=== PATIENT | male | born 1950 | race Caucasian/White ===

== ENCOUNTER 2018-08-24 13:06 | Outpatient (CLI) | payer MEDICARE, BC ==
[2018-08-24 14:40] LABS: #Eosinphils 0.2 thou/uL (0.0-0.7); #Monocytes 0.9 thou/uL (0.11-0.59); #Neutrophils 4.6 thou/uL (1.40-6.50); %Basophils 0.5 % (0.0-1.0); %Eosinophils 2.1 % (0.0-10.0); %Lymphocytes 34.3 % (21.0-51.0); %Neutrophils 53.1 % (42.0-75.0); Hemoglobin 12.9 g/dL (14.0-18.0); Mean Corpuscular HGB CONC 34.4 g/dL (32.0-36.0); Mean Corpuscular Hemoglobin 31.4 pg (27.0-31.0); Mean Corpuscular Volume 91.2 fL (78.0-98.0); Mean Platelet Volume 7.5 fL (7.4-10.4); Platelet Count 271 thou/uL (130-400); RBC Distribution Width 11.5 % (11.5-14.5); White Blood Cell (WBC) Count 8.8 thou/uL (4.8-10.8)
[2018-08-24 15:01] LABS: Anion Gap 14 mmol/L (10-20); BUN (Urea Nitrogen) 14 mg/dL (8.4-25.7); Calc. Creatinine Clearance 0 mL/min (70-130); Calcium 9.3 mg/dL (7.8-10.44); Carbon Dioxide 21 mmol/L (23-31); Chloride 106 mmol/L (98-107); Estimated GFR-MDRD Greater than 90; Glucose 111 mg/dL (80-115); Sodium 137 mmol/L (136-145)
== END 2018-08-24 13:07 | disposition home or self-care (01) ==
LOC: LABBT 13:06
PROVIDERS: ATTEND Orthopaedic Surgery
DX: Z01.818 Encounter for other preprocedural examination (principal); M75.101 Unspecified rotator cuff tear or rupture of right shoulder, not specified as traumatic
CPT/HCPCS: 80048; 85025; 93005; 93010

== ENCOUNTER 2018-08-26 06:58 | Day surgery (SDC) | payer MEDICARE, BC ==
[2018-08-24 13:33] VITALS: BMI 27.8
[2018-08-26] MEDS ORDERED: CEFAZOLIN/Water 2 GM/20 ML SYRINGE ONE (07:20)
[2018-08-26] MEDS ORDERED: Midazolam HCl 2 mg/2 ml Vial ONE (08:51)
[2018-08-26] MEDS ORDERED: Fentanyl 100 MCG/2 ML VIAL ONE ×2 (08:52→10:15)
[2018-08-26] MEDS ORDERED: Vancomycin HCl 1.5 GM in Sodium Chloride 0.9% 250 ML 300 ML IVPB SCH (11:15)
[2018-08-26] MEDS ORDERED: Promethazine HCl 25 MG/ML VIAL IM PRN (12:35)
[2018-08-26] MEDS ORDERED: Ondansetron HCl/PF 4 MG/2 ML Vial IVP PRN (12:35)
[2018-08-26] MEDS ORDERED: Ketorolac Tromethamine 30 MG/ML VIAL IVP PRN (12:35)
[2018-08-26] MEDS ORDERED: Ropivacaine 0.2% 550 ML 550 ML NERVE BLCK SCH (12:35)
[2018-08-26] MEDS ORDERED: Zolpidem Tartrate 5 MG TAB PO PRN (12:35)
[2018-08-26] MEDS ORDERED: traMADol HCl 50 MG TAB PO PRN ×2 (12:35)
[2018-08-26] MEDS ORDERED: Fentanyl 100 MCG/2 ML VIAL IV PRN (12:38)
[2018-08-26] MEDS ORDERED: HYDROcodone/Acetaminophen 7.5/325 mg Tablet PO PRN ×2 (12:41)
[2018-08-26] MEDS ORDERED: Ropivacaine 0.5% HCl/PF (150 MG/30 ML VIAL) ONE (12:56)
[2018-08-26] MEDS ORDERED: ePHEDrine/0.9% NaCl/PF SYRINGE 50 mg/10 ml ONE (13:04)
[2018-08-26] MEDS ORDERED: Metoclopramide HCl 10 MG/2 ML VIAL ONE (13:04)
[2018-08-26] MEDS ORDERED: PHENYLEPHRINE-NS 100 MCG/ML 10 ML SYRINGE ONE (13:04)
[2018-08-26] MEDS ORDERED: Ondansetron HCl/PF 4 MG/2 ML Vial ONE (13:04)
[2018-08-26] MEDS ORDERED: Ropivacaine 0.2% HCl/PF (40 MG/20 ML VIAL) ONE (13:04)
[2018-08-26] MEDS ORDERED: PROPOFOL 200 MG/20 ML VIAL ONE (13:04)
[2018-08-26] MEDS ORDERED: Lidocaine 1% PF 5 ML VIAL ONE (13:04)
--- NOTE | 2018-08-26 23:14 | OP ---
DATE OF OPERATION: 08/26/2018 PREOPERATIVE DIAGNOSES: Right shoulder impingement with massive rotator cuff tear, acromioclavicular joint arthritis, and biceps tendon tearing and instability. POSTOPERATIVE DIAGNOSES: Right shoulder impingement with massive rotator cuff tear, acromioclavicula r joint arthritis, and biceps tendon tearing and instability. PROCEDURES PERFORMED: 1. Right shoulder open subacromial decompression. 2. Open rotator cuff repair. 3. Open distal clavicle excision. 4. Open biceps tenodesis. SURGEON: Theo Fried M.D. WORKING MANAGER: Jono Alvarado PA-C. ESTIMATED BLOOD LOSS: Approximately 200 mL COMPLICATIONS: None. ANESTHESIA: He had general anesthetic. He had a preoperative block. IMPLANTS: Two triple-loaded titanium anchors as well as two 4.75 mm BioComposite SwiveLocks. All of these were [employer] devices. INDICATIONS: A 68-year-old male who comes in complaining of pain and weakness trying to elevate the arm and use the arm for daily activities. He has failed nonoperative treatment, at this time wished for surgery. OPERATIVE PROCEDURE: After all appropriate consent forms were explained and signed, he was taken to the operating room and at this time was given general anesthetic. Once the level of anesthesia was a ppropriate, he was placed in modified beach chair position with all bony prominences well-padded. Th e right shoulder and upper extremity were prepped and draped in standard surgical fashion. Incision was made with a 10 blade down through skin only. Bovie was used to coagulate any brisk venous bleedi ng. Full thickness flap was taken to expose the anterior acromion and taken proximally to the AC caleb nt and used to also expose the end of the clavicle. At this time, two Hohmann retractors were placed anterior and posterior and a saw was used to remove approximately 1 cm of the distal clavicle. Edge s were smoothed with a rasp and a small amount of bone wax was placed under the bleeding cancellous b one. We then used a retractor to protect the underlying cuff and again used the saw to perform an an terior inferior acromioplasty. Again, the rasp was used to smooth off any walk bone. At this time, bursa was removed and gained access to our underlying massive cuff tear. Posterior cuff was intact. There was a rolled-up band of what essentially was majority of the infraspinatus and all of the supr aspinatus, there was an interval piece of tissue which was the rotator cuff, which was still attached to the tuberosity, almost having the appearance of a small little suspension bridge. We looked into the joint, the articular surface of the humeral head and glenoid were visible and appeared to be in good condition. No loose bodies were noted. Biceps tendon was found to be very large and flattened and hard and also was found to be out of the bicipital groove. At this time, scissors were used to r emove the biceps off of the superior labrum. Once this was done, we then placed some traction suture s in our cuff and mobilized the rotator cuff superiorly and inferiorly. At this time, we then took a rongeur and curette and found our reattachment site on the tuberosity, cleared this off of any soft tissue as well as removing approximately 8-10 mm of bone medially, so that we would not put too much tension on our cuff repair. Once this was done, we then took two-triple loaded titanium anchors plac ed them right on the edge of the bone and used these for later repair of her rotator cuff. Prior to doing this, a cottony Dacron suture was used to sew together our multiple release of rotator cuff to form one large leaflet. At this time, we then used the sutures from our anchors and we placed these in mattress fashion for rotator cuff repair. These were then tied down and then ran these through a small portion of intact rotator cuff that was still attached to the greater tuberosity and then took the sutures further down laterally down the humerus to perform our double row repair. Once this was done, we turned our attention to the biceps tendon. Interarticular portion was removed and secondary to having placed four anchors into the bone decided it would be best to just go ahead and do a soft tissue tenodesis and thus multiple #1 Ethibond sutures were used to sew our biceps tendon to the loca l soft tissue in the bicipital groove. At this time, the arm was taken through full range of motion. We had 35 degrees of external rotation and 150 degrees of forward flexion. None of this putting te nsion on our rotator cuff repair. We then thoroughly irrigated and dried our wound. We used multipl e #1 Ethibond sutures to repair the deltoid tissue through and into the acromion through the bone. O nce this primary repair had been performed, a running #1 Vicryl suture was used to oversew this follo wed by 2-0 Vicryl and surgical shavon on the skin. Bulky sterile dressing was applied. The patient was then placed into a sling. He was then awakened and taken to the recovery room in stable conditi on. All counts were correct at the end the case and he did receive preoperative IV antibiotics.
== END 2018-08-26 14:55 | disposition home or self-care (01) ==
LOC: SDC 06:58
PROVIDERS: ATTEND Orthopaedic Surgery
PROC: 0LS10ZZ Reposition Right Shoulder Tendon, Open Approach (ICD-10-PCS; principal; 2018-08-26)
PROC: 0PB90ZZ Excision of Right Clavicle, Open Approach (ICD-10-PCS; 2018-08-26)
PROC: 0LQ10ZZ Repair Right Shoulder Tendon, Open Approach (ICD-10-PCS; 2018-08-26)
PROC: 0RHJ04Z Insertion of Internal Fixation Device into Right Shoulder Joint, Open Approach (ICD-10-PCS; 2018-08-26)
DX: S46.111A Strain of muscle, fascia and tendon of long head of biceps, right arm, initial encounter (principal); M75.101 Unspecified rotator cuff tear or rupture of right shoulder, not specified as traumatic; M75.41 Impingement syndrome of right shoulder; M19.011 Primary osteoarthritis, right shoulder; E11.9 Type 2 diabetes mellitus without complications; E78.5 Hyperlipidemia, unspecified; I10 Essential (primary) hypertension; M10.9 Gout, unspecified; Z79.84 Long term (current) use of oral hypoglycemic drugs; Z79.899 Other long term (current) drug therapy; Z98.890 Other specified postprocedural states
CPT/HCPCS: 23120; 23130; 23412; 23430; A4306; C1713 ×2; J2001; J2250; J2405; J2704; J2765; J2795; J3010; J3370; J7050

== ENCOUNTER 2018-12-02 06:08 | Outpatient (CLI) | payer MEDICARE, BC ==
[2018-12-02 12:21] LABS: #Basophils 0.1 thou/uL (0.0-0.2); #Eosinphils 0.4 thou/uL (0.0-0.7); #Lymphocytes 2.7 thou/uL (1.20-3.40); #Monocytes 0.7 thou/uL (0.11-0.59); #Neutrophils 5.9 thou/uL (1.40-6.50); %Basophils 0.8 % (0.0-1.0); %Lymphocytes 27.2 % (21.0-51.0); %Monocytes 7.3 % (0.0-10.0); %Neutrophils 60.7 % (42.0-75.0); Hemoglobin 11.8 g/dL (14.0-18.0); Mean Corpuscular HGB CONC 32.5 g/dL (32.0-36.0); Mean Corpuscular Volume 89.3 fL (78.0-98.0); Mean Platelet Volume 7.3 fL (7.4-10.4); Platelet Count 289 thou/uL (130-400); RBC Distribution Width 11.8 % (11.5-14.5); Red Blood Cell (RBC) Count 4.08 mill/uL (4.70-6.10); White Blood Cell (WBC) Count 9.8 thou/uL (4.8-10.8)
[2018-12-02 12:35] LABS: Hemoglobin A1c 6.3 % (4.0-6.0)
[2018-12-02 12:37] LABS: Anion Gap 13 mmol/L (10-20); BUN (Urea Nitrogen) 13 mg/dL (8.4-25.7); Calc. Creatinine Clearance 0 mL/min (70-130); Calcium 9.7 mg/dL (7.8-10.44); Carbon Dioxide 25 mmol/L (23-31); Chloride 106 mmol/L (98-107); Estimated GFR-MDRD Greater than 90; Glucose 147 mg/dL (80-115); Sodium 140 mmol/L (136-145)
== END 2018-12-02 06:09 | disposition home or self-care (01) ==
LOC: LABBT 06:08
PROVIDERS: ATTEND Specialist
DX: Z01.818 Encounter for other preprocedural examination (principal); K63.5 Polyp of colon
CPT/HCPCS: 80048; 82378; 83036; 85025

== ENCOUNTER 2018-12-02 10:30 | Inpatient (IN) | payer MEDICARE, BC ==
[2018-12-02 10:55] VITALS: BMI 26.4
[2018-12-06] MEDS ORDERED: Fentanyl 100 MCG/2 ML VIAL ONE ×2 (06:21→07:17)
[2018-12-06] MEDS ORDERED: Midazolam HCl 2 mg/2 ml Vial ONE (06:21)
[2018-12-06] MEDS ORDERED: Ketorolac Tromethamine 30 MG/ML VIAL ONE ×2 (06:30→16:19)
[2018-12-06] MEDS ORDERED: Lidocaine 1% w/Epinephrine 1:100K 20 ML VIAL ONE ×2 (06:41→10:08)
[2018-12-06] MEDS ORDERED: cefOXitin Sodium/Dextrose,Iso 2 GM in Premix Bag 1 BAG IVPB SCH (06:45)
[2018-12-06] MEDS ORDERED: Albumin 25% 100 ML ONE (07:18)
[2018-12-06] MEDS ORDERED: Indocyanine Green 25 MG/10 ML VIAL ONE (08:44)
[2018-12-06] MEDS ORDERED: ceFOXitin 1 GM VIAL ONE (08:44)
[2018-12-06] MEDS ORDERED: Promethazine HCl 25 MG/ML VIAL IM PRN ×3 (10:48→14:13)
[2018-12-06] MEDS ORDERED: HYDROmorphone 2 MG/ML VIAL SLOW IVP PRN (10:48)
[2018-12-06] MEDS ORDERED: Promethazine HCl 25 MG/ML VIAL SLOW IVP PRN (10:48)
[2018-12-06] MEDS ORDERED: Ondansetron HCl/PF 4 MG/2 ML Vial IVP PRN (10:48)
[2018-12-06] MEDS ORDERED: PACU-Morphine 4MG/ML VIAL SLOW IVP PRN (10:48)
[2018-12-06] MEDS ORDERED: D5 1/2 NS w/20 mEq KCL 1,000 ML IV SCH (14:13)
[2018-12-06] MEDS ORDERED: hydrALAZINE 20 MG/ML VIAL SLOW IVP PRN ×2 (14:13)
[2018-12-06] MEDS ORDERED: Morphine 4 MG/ML VIAL SLOW IVP PRN ×2 (14:13)
[2018-12-06] MEDS ORDERED: Insulin Regular 300 UNITS/3 ML VIAL SC PRN (14:13)
[2018-12-06] MEDS ORDERED: Ondansetron PF 4 MG/2 ML Vial IVP PRN ×2 (14:13)
[2018-12-06] MEDS ORDERED: Acetaminophen 1,000 MG in Premix Bag 1 BAG IVPB SCH (14:13)
[2018-12-06] MEDS ORDERED: Bupivacaine HCl 0.5%/Epinephrine 1:200,000/PF 30 ml Vial ONE (15:31)
[2018-12-06] MEDS ORDERED: Ondansetron PF 4 MG/2 ML Vial ONE (16:19)
[2018-12-06] MEDS ORDERED: PROPOFOL 200 MG/20 ML VIAL ONE (16:19)
[2018-12-06] MEDS ORDERED: Dexamethasone 20 MG/5 ML VIAL ONE (16:19)
[2018-12-06] MEDS ORDERED: Lidocaine 1% PF 5 ML VIAL ONE (16:19)
[2018-12-06] MEDS ORDERED: ePHEDrine/0.9% NaCl/PF SYRINGE 50 mg/10 ml ONE (16:19)
[2018-12-06] MEDS ORDERED: Rocuronium Bromide 10 MG/ML (10ML VIAL) ONE (16:19)
[2018-12-06] MEDS ORDERED: PHENYLEPHRINE-NS 100 MCG/ML 10 ML SYRINGE ONE (16:19)
[2018-12-06] MEDS: Ketorolac Tromethamine 30 MG/ML VIAL IVP SCH (18:32)
[2018-12-06] MEDS: Acetaminophen 1,000 MG in Premix Bag 1 BAG IVPB SCH (18:33)
[2018-12-06] MEDS: Enoxaparin Sodium 40 MG/0.4 ML SYRINGE SC SCH (20:35)
[2018-12-06] MEDS: Famotidine 20 MG TAB PO SCH (20:36)
[2018-12-06] MEDS: Lactated Ringer's 1,000 ML IV SCH (20:48)
[2018-12-06] MEDS ORDERED: Famotidine 20 MG TAB PO SCH (21:00)
[2018-12-06] MEDS ORDERED: Famotidine/PF 20 mg/2ml Vial SLOW IVP SCH ×2 (21:00)
[2018-12-07] MEDS: Acetaminophen 1,000 MG in Premix Bag 1 BAG IVPB SCH ×3 (00:10→13:34)
[2018-12-07] MEDS: Ketorolac Tromethamine 30 MG/ML VIAL IVP SCH ×4 (00:11→18:38)
[2018-12-07] MEDS: Lactated Ringer's 1,000 ML IV SCH ×3 (00:19→09:08)
[2018-12-07 06:58] LABS: #Basophils 0.1 thou/uL (0.0-0.2); #Eosinphils 0.1 thou/uL (0.0-0.7); #Lymphocytes 2.5 thou/uL (1.20-3.40); #Monocytes 0.7 thou/uL (0.11-0.59); #Neutrophils 5.2 thou/uL (1.40-6.50); %Basophils 0.6 % (0.0-1.0); %Eosinophils 0.9 % (0.0-10.0); %Monocytes 8.1 % (0.0-10.0); %Neutrophils 61.4 % (42.0-75.0); Hemoglobin 10.5 g/dL (14.0-18.0); Mean Corpuscular HGB CONC 33.3 g/dL (32.0-36.0); Mean Corpuscular Hemoglobin 30.5 pg (27.0-31.0); Mean Corpuscular Volume 91.7 fL (78.0-98.0); Mean Platelet Volume 7.1 fL (7.4-10.4); Platelet Count 217 thou/uL (130-400); RBC Distribution Width 11.9 % (11.5-14.5); Red Blood Cell (RBC) Count 3.45 mill/uL (4.70-6.10); White Blood Cell (WBC) Count 8.5 thou/uL (4.8-10.8)
[2018-12-07 07:28] LABS: Anion Gap 14 mmol/L (10-20); BUN (Urea Nitrogen) 10 mg/dL (8.4-25.7); Calc. Creatinine Clearance 108 mL/min (70-130); Calcium 8.9 mg/dL (7.8-10.44); Carbon Dioxide 23 mmol/L (23-31); Chloride 107 mmol/L (98-107); Estimated GFR-MDRD Greater than 90; Glucose 113 mg/dL (80-115); Potassium 3.6 mmol/L (3.5-5.1); Sodium 140 mmol/L (136-145)
[2018-12-07] MEDS: Allopurinol 100 MG TAB PO SCH (08:39)
[2018-12-07] MEDS: metFORMIN 500 MG TAB PO SCH ×2 (08:39→18:40)
[2018-12-07] MEDS: Alogliptin 25 MG TAB PO SCH (08:39)
[2018-12-07] MEDS: Famotidine 20 MG TAB PO SCH ×2 (08:40→20:31)
[2018-12-07] MEDS: Lisinopril 20 MG TAB PO SCH (08:40)
[2018-12-07] MEDS: Amlodipine 10 MG TAB PO SCH (08:40)
--- NOTE | 2018-12-07 15:40 | PRG ---
DATE OF SERVICE: 12/07/2018 SUBJECTIVE: Mr. Patino is doing very well, postoperative day #1, from a robotic right hemicolectomy for a right colon polyp. He has no complaints. He notes minimal abdominal discomfort. He has tolerated clear liquids yesterday, and he has ambulated well. His Gonzalez catheter was removed this morning, but he has not yet voided. OBJECTIVE: VITAL SIGNS: On examination, he is afebrile. His vital signs are entirely normal. He does have mild hypertension. His urine output overnight was excellent at 1300 mL. LUNGS: Clear to auscultation. CARDIAC: Regular rate and rhythm without murmur. ABDOMEN: Soft, nontender, and nondistended. Incisions are healing nicely. Bowel sounds are present and normoactive. LABORATORY STUDIES: Revealed that his hemoglobin is stable at 10.5. His white blood cell count is 8.5. His basic metabolic panel is entirely normal. His glucose levels yesterday ranged from 120 to 190. This morning his sugar level was 113. ASSESSMENT: He is doing very well postoperative day #1 following robotic right hemicolectomy. He will continue on clear liquids today and advance to full liquids in the morning. If he progresses as anticipated, I would imagine he will be discharged tomorrow. Job ID: [id number]
[2018-12-07] MEDS ORDERED: HYDROcodone/Acetaminophen 7.5/325 mg Tablet PO PRN ×2 (16:00)
--- NOTE | 2018-12-07 20:17 | OP ---
DATE OF PROCEDURE: 12/06/2018 PREOPERATIVE DIAGNOSIS: Colonoscopically unresectable right colon polyp. POSTOPERATIVE DIAGNOSIS: Colonoscopically unresectable right colon polyp. OPERATION PERFORMED: Robotic right hemicolectomy. ANESTHESIA: General endotracheal. INDICATIONS: The patient is a 68-year-old white male. He recently had a colonoscopy revealing a sessile polyp within the right colon that was colonoscopically unresectable. This was a serrated adenoma with high-grade dysplasia. The lesion was tattooed per Dr. Escudero. Right hemicolectomy was recommended. DESCRIPTION OF OPERATION: Informed consent was obtained and patient was taken to the operating room, where general endotracheal anesthesia was obtained with the patient in supine position. The patient had undergone mechanical and antibiotic bowel prep at home. Abdomen was prepped with ChloraPrep, draped in sterile fashion. Local anesthetic was infiltrated using 1% lidocaine with epinephrine. The patient had a tap block placed with Marcaine by Anesthesia before coming to the operating room. A 8 mm left periumbilical incision was created and Veress needle was passed through this incision to the abdominal cavity. Pneumoperitoneum was established using carbon dioxide up to pressure of 15 mmHg. An 8 mm trocar port was passed through the same incision and laparoscopic camera was passed through this port. Under direct vision, 3 additional ports were placed including 12 mm left upper quadrant port, 8 mm left lower abdominal port, and 11 mm left flank port to be used as an assist port. The robot was then docked to the three robotic ports and to the camera, and the operation was continued from the robotic console. There were two areas of adhesions noted in the patient's abdomen. His terminal ileum was fairly densely adherent to the right lateral abdominal wall. These adhesions were all sharply lysed in order to fully mobilize the ileum. Additionally, there were adhesions between the proximal transverse colon and the right colon. These adhesions were also sharply divided in order to restore normal anatomy. Attention was then turned to the cecum. This was elevated in order to identify the ileocolic pedicle. The mesentery was incised inferior to the ileocolic vessels and a retroperitoneal dissection was carried laterally to the right lateral abdominal wall. This was then carried superiorly up to the level of the hepatic flexure. At this point, the ileocolic vessels were dissected circumferentially and divided with the vessel sealer. The duodenum had been identified during retroperitoneal dissection and swept posteriorly. Dissection was then carried superiorly through the mesentery to a preselected site of the proximal transverse colon. The right branch of the middle colic artery was identified and divided using the vessel sealer. The transverse colon was dissected circumferentially at this level and divided with a single fire of the robotic stapler. The omentum was divided at this level so as to take the omentum of the proximal transverse colon with the specimen. Vessel sealer was then used to dissect through the mesentery of the small bowel to the ileum several centimeters proximal to the cecum. The ileum at this level was also divided with the robotic stapler. I then laterally mobilized the colon away from the lateral abdominal wall, by incising the white line of Toldt. In so doing, I completed the mobilization of the colon. The terminal ileum and right colon were then passed up above the liver and operation was continued with the anastomosis. The ileum was laid adjacent to the proximal transverse colon. A single suture of 3-0 Vicryl was placed about 7 cm from the stapled end of the transverse colon and about a centimeter or two away from the stapled end of the ileum. An enterotomy was created in both the ileum and the transverse colon, and blue load of stapler was passed through these openings and fired in order to create an anastomosis between the small bowel and the transverse colon. The Vicryl suture was pulled through the anterior abdominal wall using a GraNee needle and used to elevate the opening in the bowel to facilitate the closure. The common enterotomy was closed with a running suture of 3-0 Stratafix in a to and fro fashion. The right abdomen was irrigated and all irrigant was aspirated. There have been no spillage of any bowel contents during the course of the surgery. The colon was grasped and moved down to the lower abdomen. The fascial defect at the two larger port sites were closed with 0 Vicryl sutures and GraNee needle. The lower abdominal incision was extended to a total length of about 4 cm. Dissection was carried into the abdominal cavity using muscle-splitting technique and the Tonny wound retractor was placed. The colon was then delivered through this and brought out externally. The lower abdominal wound was closed in layers using 3-0 Vicryl to close the peritoneum and #1 PDS to close the anterior fascia. The wound was extensively irrigated and the remainder of the wound was closed in layers with 3-0 and 4-0 Monocryl suture. The other wounds were likewise cleansed and closed with 4-0 Monocryl suture. Dermabond was placed externally to each of this 4 incisions. There were no complications. Blood loss was negligible. The patient tolerated the procedure well and was taken to the recovery room in stable condition. Job ID: [id number]
[2018-12-07] MEDS: Enoxaparin Sodium 40 MG/0.4 ML SYRINGE SC SCH (20:31)
[2018-12-07] MEDS ORDERED: Atorvastatin Calcium 20 MG TAB PO SCH (21:00)
[2018-12-08] MEDS: Lactated Ringer's 1,000 ML IV SCH (00:15)
[2018-12-08] MEDS: Ketorolac Tromethamine 30 MG/ML VIAL IVP SCH ×3 (00:15→11:14)
[2018-12-08] MEDS: metFORMIN 500 MG TAB PO SCH (08:10)
[2018-12-08] MEDS: Amlodipine 10 MG TAB PO SCH (08:11)
[2018-12-08] MEDS: Famotidine 20 MG TAB PO SCH (08:11)
[2018-12-08] MEDS: Alogliptin 25 MG TAB PO SCH (08:11)
[2018-12-08] MEDS: Allopurinol 100 MG TAB PO SCH (08:11)
[2018-12-08] MEDS: Lisinopril 20 MG TAB PO SCH (08:11)
[2018-12-08 08:21] VITALS: TEMP 98.4
[2018-12-08 11:25] VITALS: BP 159/79
== END 2018-12-08 11:35 | disposition home or self-care (01) | DRG 331 ==
LOC: SURG A 12-06 06:01
PROVIDERS: ADMIT Specialist; ATTEND Specialist
PROC: 0DTF4ZZ Resection of Right Large Intestine, Percutaneous Endoscopic Approach (ICD-10-PCS; principal; 2018-12-06)
PROC: 8E0W4CZ Robotic Assisted Procedure of Trunk Region, Percutaneous Endoscopic Approach (ICD-10-PCS; 2018-12-06)
DX: D12.6 Benign neoplasm of colon, unspecified (principal); K66.0 Peritoneal adhesions (postprocedural) (postinfection)
CPT/HCPCS: 36415; 36416; 80048; 85025; 88309; 88313; 88341; 88342; J0131; J0670; J0694; J1100; J1650; J1885; J2001; J2250; J2405; J2704; J3010; P9047

== ENCOUNTER 2020-08-28 16:13 | Outpatient (CLI) | payer MEDICARE, BC ==
--- NOTE | 2020-08-28 17:00 | CT ---
CT STONE PROTOCOL 08/28/20 HISTORY: Left sided flank pain. Nausea and vomiting. FINDINGS: Absence of oral and IV contrast reduces the sensitivity of the exam particularly for the evaluation o f solid organs and bowel. The lung bases are clear. No pneumoperitoneum or ascites is seen. No calcified gallstone are noted. T here are bilateral renal calculi measuring up to 4 mm in the right kidney. There is left sided hydrou reteronephrosis secondary to a 5 mm calculus in the left distal ureter close to but proximal to the U VJ. No calculi is seen in the right ureter or the urinary bladder. No right sided hydroureteronephros is is seen. There is left perinephric and periureteric inflammatory change likely due to pyelotubular backflow. There is a 1.7 cm exophytic cyst arising from the right kidney. There are calcified granulomas in the spleen. There are vascular calcifications without evidence of a neurysmal dilatation of the abdominal aorta. There are degenerative changes in the spine. The prostat e is enlarged. There are bilateral pars articularis defects at L5 level with minimal anterolisthesis of L5 over S1. There are small bilateral fat containing inguinal herniae. IMPRESSION: 1. Obstructing 5 mm left distal ureteric calculus. 2. Bilateral renal calculi. 3. Right renal cyst. 4. Prostatic enlargement. POS: PRICEA
== END 2020-08-28 16:14 | disposition home or self-care (01) ==
LOC: SCSCT 16:13
PROVIDERS: ATTEND Family Medicine
DX: N20.2 Calculus of kidney with calculus of ureter (principal); N28.1 Cyst of kidney, acquired; N40.0 Benign prostatic hyperplasia without lower urinary tract symptoms
CPT/HCPCS: 36415; 74176; 80053; 85025